=== PATIENT | female | born 1975 | race Caucasian/White ===

== ENCOUNTER 2020-03-14 15:22 | Emergency (ER) | payer OTHER ==
[~2020-03-14] VITALS: Ht 154.9 cm; Wt 59.0 kg
[2020-03-14] MEDS ORDERED: CELEXA 10 MG TA10 M1 PO (15:31)
[2020-03-14 16:09] LABS: ABSOLUTE BASOPHILS 0.2 thou/uL (0.0-0.2); ABSOLUTE EOSINOPHILS 0.2 thou/uL (0.0-0.7); ABSOLUTE LYMPHOCYTES 2.2 thou/uL (0.8-5.3); ABSOLUTE MONOCYTES 0.4 thou/uL (0.0-1.2); ABSOLUTE NEUTROPHILS 3.5 thou/uL (1.6-8.1); BASOPHILS 2.5 %; EOSINOPHILS 3.7 %; HEMATOCRIT 33.5 % (37.0-47.0); HEMOGLOBIN 11.8 gm/dL (12.0-15.0); LYMPHOCYTES 34.2 %; MCH 31.3 pg (26.0-34.0); MCHC 35.2 g/dL (28.0-37.0); MCV 88.8 fL (80.0-100.0); MONOCYTES 5.8 %; MPV 9.8 fl. (7.2-11.1); NUCLEATED RBCS 0 /100WBC; PLATELET COUNT* 137 thou/uL (150-400); POLYS 53.8 %; RBC 3.77 mil/uL (4.20-5.00); RDW-CV 13.4 % (10.5-14.5); WBC 6.4 thou/uL (4.0-11.0)
[2020-03-14 16:18] LABS: CALCIUM 8.9 mg/dL (8.5-10.1); CREATININE 1.2 mg/dL (0.6-1.3); POTASSIUM 3.6 mmol/L (3.5-5.1)
[2020-03-14 16:20] LABS: APTT 28.6 Seconds (25.0-31.3); INR 1.1; PROTIME 10.8 Seconds (9.20-11.50)
[2020-03-14 16:23] LABS: TOTAL BILIRUBIN 0.5 mg/dL (<0.1-1.0)
[2020-03-14] MEDS ORDERED: MEDROLDOSEPACK PO (16:28)
[2020-03-14 16:35] LABS: URINE BILIRUBIN NEGATIVE (Negative); URINE BLOOD 1+ (Negative); URINE CLARITY CLEAR; URINE COLOR YELLOW; URINE GLUCOSE-RANDOM NEGATIVE (Negative); URINE KETONES NEGATIVE (Negative); URINE LEUKOCYTES-REFLEX TRACE (Negative); URINE NITRITE-REFLEX NEGATIVE (Negative); URINE PROTEIN NEGATIVE (Negative); URINE SPECIFIC GRAVITY >= 1.030 (1.005-1.030); URINE UROBILINOGEN 0.2 E.U./dl (0.2-1.0)
[2020-03-14 16:42] LABS: SQUAMOUS >10 Many /LPF (0-3)
[2020-03-14 16:44] LABS: AMORPHOUS URATES Few /LPF (None Seen); BACTERIA-REFLEX 1-9 Few /HPF (None Seen); URINE RBC 0-2 Rare /HPF (0-2); URINE WBC-REFLEX 0-5 Rare /HPF (0-5)
[2020-03-14 16:45] LABS: CASTS None Seen /LPF (None Seen); MUCUS None Seen strn/LPF (None Seen)
[2020-03-14 17:08] VITALS: BP 128/82
== END 2020-03-14 17:08 | disposition home or self-care (01) ==
LOC: M.ERS 15:22
PROVIDERS: Physician Assistant
DX: R21 Rash and other nonspecific skin eruption (principal); R31.9 Hematuria, unspecified; Z88.5 Allergy status to narcotic agent

== ENCOUNTER 2020-03-29 12:24 | Emergency (ER) | payer OTHER ==
[~2020-03-29] VITALS: Ht 152.4 cm; Wt 56.7 kg
[~2020-03-29 12:24] MED LIST: CELEXA 10 MG TA10 M1 PO; MEDROLDOSEPACK PO
[2020-03-29 12:30] VITALS: BP 126/80
[2020-03-29] MEDS ORDERED: PREDNISONE 10 M10 MG PO (12:51)
[2020-03-29] MEDS ORDERED: HYDROCORTISONE3011 TOP (12:51)
== END 2020-03-29 13:08 | disposition home or self-care (01) ==
LOC: M.ERS 12:24
DX: R21 Rash and other nonspecific skin eruption (principal); Z88.5 Allergy status to narcotic agent